=== PATIENT | female | born 1985 | race Caucasian/White ===

== ENCOUNTER 2023-02-20 12:04 | Emergency (ER) | payer BC, OTHER ==
[~2023-02-20] VITALS: Ht 162.6 cm; Wt 141.0 kg
[2023-02-20 12:07] VITALS: BP_DIAS 119
[2023-02-20] MEDS ORDERED: NAPR-56 PO (14:39)
[2023-02-20] MEDS ORDERED: PRED10TA23 PO (14:39)
[2023-02-20] MEDS ORDERED: LISI10TA27 PO (14:41)
[2023-02-20] MEDS ORDERED: furosemide 20MG tablet PO ONE (14:45)
[2023-02-20] MEDS ORDERED: lisinopril 10 MG tablet PO ONE (14:45)
[2023-02-20 14:50] VITALS: BP_SYST 170
== END 2023-02-20 15:15 | disposition home or self-care (01) ==
LOC: ER 12:05
DX: I10 Essential (primary) hypertension (principal); M10.9 Gout, unspecified; R22.43 Localized swelling, mass and lump, lower limb, bilateral
CPT/HCPCS: 99284